=== PATIENT | female | born 1985 | race Caucasian/White ===

== ENCOUNTER 2016-09-17 19:06 | Emergency (ER) | payer BC, OTHER ==
[~2016-09-17] VITALS: Ht 162.6 cm; Wt 86.2 kg
[~2016-09-17 19:06] MED LIST: ETONMIS VAGRING; NXM/40 PO; ONDA4TAB10 SL
[2016-09-17 19:09] VITALS: TEMP 36.7; Ht 162.6 cm; Wt 86.2 kg
[2016-09-17] MEDS ORDERED: SODIUM CHLORIDE 0.9% 1000ML 1,000 ML IV STA (19:42)
[2016-09-17 20:14] LABS: BASO % 0.4 %; BASO ABS # 0.04 K/uL (0-0.2); COMPLETE YES; EOS % 2.3 %; HEMATOCRIT 38.1 % (37-47); IG% 0.2 %; LYMPH ABS # 4.12 K/uL (1.2-3.4); MEAN CELL VOLUME 91.4 fL (80-100); MEAN CORPUSCULAR HEMOGLOBIN 30.5 pg (25-34); MEAN CORPUSCULAR HGB CONC 33.3 g/dl (32-36); MEAN PLATELET VOLUME 8.2 fL (7.4-10.4); MONO % 4.9 %; NEUT % 53.2 %; PLATELET COUNT 347 K/uL (130-400); RED BLOOD COUNT 4.17 M/uL (4.2-5.4); WHITE BLOOD COUNT 10.57 K/uL (4.8-10.8)
[2016-09-17 20:21] LABS: INR 0.9 (0.9-1.1); PARTIAL THROMBOPLASTIN RATIO 1.1; PROTHROMBIN TIME (PATIENT) 9.5 SECONDS (9.0-12.0)
[2016-09-17 20:38] LABS: BUN/CREATININE RATIO 13.9 (10-20); CALCIUM 8.9 mg/dl (8.5-10.1); CREATININE 0.92 mg/dl (0.60-1.20); POTASSIUM 3.4 mmol/L (3.5-5.1)
[2016-09-17 20:40] LABS: ALB/GLOB RATIO 0.9 (0.9-2)
[2016-09-17 21:50] LABS: URINE APPEARANCE CLEAR (CLEAR); URINE BILIRUBIN NEG (NEG); URINE COLOR ORANGE; URINE NITRITE NEG (NEG); URINE SPECIFIC GRAVITY 1.017 (1.000-1.030); UROBILINOGEN NEG (NEG); ZZUR CULT IF INDIC CLEAN CATCH NO
[2016-09-17 21:51] LABS: MANUAL MICROSCOPIC REQUIRED? NO; REVIEW REQ? NO
--- NOTE | 2016-09-17 21:58 | DIAGNOSTIC IMAGING REPORT ---
EXAMINATION: PELVIC ULTRASOUND CLINICAL HISTORY: heavy vaginal bleeding COMPARISON STUDY: May 2011 FINDINGS: The uterus measured 8.3 x 4.3 x 5.2 cm. Clot within the endometrial cavity was visualized measuring 13 mm. The right ovary measured 16 x 26 x 14 mm. The left ovary measured 24 x 22 x 18 mm.. There is no ultrasonographic evidence of ovarian torsion. It should be noted that ovarian torsion can be present with normal Doppler ultrasonographic findings. There was no evidence of pathologic free pelvic fluid. IMPRESSION: 1. Hemorrhage visualized within the endometrial cavity which measured 13 mm in thickness 2. Ultrasonographically normal ovaries Electronically signed by: Ez Bush M.D. 09/17/2016 9:56 PM Dictated Date/Time: 09/17/2016 9:53 PM
[2016-09-17] MEDS ORDERED: NORETHINDRONE ACETATE 5 MG TAB PO STA (22:56)
[2016-09-17] MEDS ORDERED: AYG/5 PO (23:07)
--- NOTE | 2016-09-17 23:07 | EMERGENCY ROOM VISIT NOTE ---
History First contact with patient: 19:27 Chief Complaint: ED VAG BLEEDING Stated Complaint: EXCESSIVE BLEEDING/CLOTING FROM PD, 8 DAYS History of Present Illness The patient is a 31 year old female who presents to the Emergency Room with complaints of heavy vaginal bleeding for the past 8 days. The patient states that she has had excessive vaginal bleeding over the past 8 days. She reports she is passing several blood clots daily and when she stands up, she has increased bleeding. She has been changing her pad twice per hour. The patient uses a NuvaRing and states that she inserted a new NuvaRing 4 days ago but this did not relieve the bleeding. She states that she has had a mild headache for the past few days as well. She has a history of cervical cancer and states that she had a LEEP procedure and cryotherapy 10 years ago. She called her OB/ [facility] and was able to make an appointment for this coming Wednesday. She reports some mild soreness across the lower abdomen which is relieved with ibuprofen. She rates her overall discomfort a 3/10. She states she had one previous episode of heavy bleeding several months ago, but this went away without treatment. She denies any history of bleeding or clotting disorders. She denies any urinary symptoms or fevers/chills. Review of Systems A complete 10 point review of systems was reviewed with the patient with pertinent positives and negatives as per history of present illness. All else were negative. Social History Smoking Status: Never Smoker Housing Status: lives with family Current/Historical Medications Scheduled Esomeprazole Magnesium (Nexium), 40 MG PO DAILY Etonogestrel/Ethinyl Estradiol (Nuvaring), 1 EA VAGRING MONTHLY Norethindrone Acetate (Aygestin), 1 TAB PO UD Allergies Coded Allergies: Egg White (Verified Allergy, Unknown, SHORTNESS OF BREATH, 09/17/16) Sulfamethoxazole w/Trimethoprim (Verified Allergy, Unknown, CHILDHOOD ALLERGY, 09/17/16) Physical Exam Vital Signs Date Time Temp Pulse Resp B/P Pulse Ox O2 Delivery O2 Flow Rate FiO2 09/17/16 23:50 77 18 120/84 100 Room Air 09/17/16 22:02 86 16 130/80 Room Air 09/17/16 21:55 82 16 154/105 97 Room Air 09/17/16 20:10 82 16 143/89 82 Room Air 09/17/16 19:09 36.7 92 18 167/93 100 Room Air Physical Exam VITALS: Vitals are noted on the nurse's note and reviewed by myself. Vital signs stable. GENERAL: This is a 31-year-old female, in no acute distress, nondiaphoretic, well-developed well-nourished. SKIN: Capillary reflex less than 2 seconds. HEART: Regular rate and rhythm without murmurs gallops or rubs. LUNGS: Clear to auscultation bilaterally without wheezes, rales or rhonchi. ABDOMEN: Positive bowel sounds x 4. Soft, nontender to palpation. PELVIC: External genitalia unremarkable. Moderate amount of blood from the cervical os. There is scarring of the cervix around the os. Otherwise unremarkable. NEURO: Patient was alert and oriented to person place and time. Medical Decision & Procedures ER Provider Diagnostic Interpretation: EXAMINATION: PELVIC ULTRASOUND CLINICAL HISTORY: heavy vaginal bleeding COMPARISON STUDY: May 2011 FINDINGS: The uterus measured 8.3 x 4.3 x 5.2 cm. Clot within the endometrial cavity was visualized measuring 13 mm. The right ovary measured 16 x 26 x 14 mm. The left ovary measured 24 x 22 x 18 mm.. There is no ultrasonographic evidence of ovarian torsion. It should be noted that ovarian torsion can be present with normal Doppler ultrasonographic findings. There was no evidence of pathologic free pelvic fluid. IMPRESSION: 1. Hemorrhage visualized within the endometrial cavity which measured 13 mm in thickness 2. Ultrasonographically normal ovaries Laboratory Results 09/17/16 19:53 Red Blood Count 4.17, Mean Corpuscular Volume 91.4, Mean Corpuscular Hemoglobin 30.5, Mean Corpuscular Hemoglobin Concent 33.3, Mean Platelet Volume 8.2, Neutrophils (%) (Auto) 53.2, Lymphocytes (%) (Auto) 39.0, Monocytes (%) (Auto) 4.9, Eosinophils (%) (Auto) 2.3, Basophils (%) (Auto) 0.4, Neutrophils # (Auto) 5.63, Lymphocytes # (Auto) 4.12, Monocytes # (Auto) 0.52, Eosinophils # (Auto) 0.24, Basophils # (Auto) 0.04 09/17/16 19:53 Test 09/17/16 19:53 09/17/16 21:15 White Blood Count 10.57 K/uL (4.8-10.8) Red Blood Count 4.17 M/uL (4.2-5.4) Hemoglobin 12.7 g/dL (12.0-16.0) Hematocrit 38.1 % (37-47) Mean Corpuscular Volume 91.4 fL (80-100) Mean Corpuscular Hemoglobin 30.5 pg (25-34) Mean Corpuscular Hemoglobin Concent 33.3 g/dl (32-36) Platelet Count 347 K/uL (130-400) Mean Platelet Volume 8.2 fL (7.4-10.4) Neutrophils (%) (Auto) 53.2 % Lymphocytes (%) (Auto) 39.0 % Monocytes (%) (Auto) 4.9 % Eosinophils (%) (Auto) 2.3 % Basophils (%) (Auto) 0.4 % Neutrophils # (Auto) 5.63 K/uL (1.4-6.5) Lymphocytes # (Auto) 4.12 K/uL (1.2-3.4) Monocytes # (Auto) 0.52 K/uL (0.11-0.59) Eosinophils # (Auto) 0.24 K/uL (0-0.5) Basophils # (Auto) 0.04 K/uL (0-0.2) RDW Standard Deviation 45.3 fL (36.4-46.3) RDW Coefficient of Variation 13.6 % (11.5-14.5) Immature Granulocyte % (Auto) 0.2 % Immature Granulocyte # (Auto) 0.02 K/uL (0.00-0.02) Prothrombin Time 9.5 SECONDS (9.0-12.0) Prothromb Time International Ratio 0.9 (0.9-1.1) Activated Partial Thromboplast Time 27.3 SECONDS (21.0-31.0) Partial Thromboplastin Ratio 1.1 Anion Gap 5.0 mmol/L (3-11) Est Creatinine Clear Calc Drug Dose 93.3 ml/min Estimated GFR () 95.5 Estimated GFR (Non- 82.4 BUN/Creatinine Ratio 13.9 (10-20) Calcium Level 8.9 mg/dl (8.5-10.1) Total Bilirubin 0.3 mg/dl (0.2-1) Aspartate Amino Transf (AST/SGOT) 11 U/L (15-37) Alanine Aminotransferase (ALT/SGPT) 22 U/L (12-78) Alkaline Phosphatase 65 U/L (45-117) Total Protein 7.9 gm/dl (6.4-8.2) Albumin 3.8 gm/dl (3.4-5.0) Globulin 4.1 gm/dl (2.5-4.0) Albumin/Globulin Ratio 0.9 (0.9-2) Urine Color ORANGE Urine Appearance CLEAR (CLEAR) Urine pH 6.0 (4.5-7.5) Urine Specific Tell 1.017 (1.000-1.030) Urine Protein NEG (NEG) Urine Glucose (UA) NEG (NEG) Urine Ketones 1+ (NEG) Urine Occult Blood 3+ (NEG) Urine Nitrite NEG (NEG) Urine Bilirubin NEG (NEG) Urine Urobilinogen NEG (NEG) Urine Leukocyte Esterase NEG (NEG) Urine WBC (Auto) 1-5 /hpf (0-5) Urine RBC (Auto) >30 /hpf (0-4) Urine Hyaline Casts (Auto) 0 /lpf (0-5) Urine Epithelial Cells (Auto) 5-10 /lpf (0-5) Urine Bacteria (Auto) NEG (NEG) Urine Test NEG (NEG) Medications Administered Medications (Trade) Dose Ordered Sig/Daly Route Start Time Stop Time Status Last Admin Dose Admin Sodium Chloride (Nss 1000ml) 1,000 ml @ 999 mls/hr Q1H1M STAT IV 09/17/16 19:42 09/17/16 20:42 DC 09/17/16 20:15 999 MLS/HR Norethindrone Acetate (Aygestin Tab) 5 mg NOW STAT PO 09/17/16 22:56 09/17/16 22:57 DC 09/17/16 23:51 5 MG ED Course The patient was evaluated as above. Labs were drawn and IV access was obtained. Patient was medicated with 1 L normal saline solution. Pelvic ultrasound was performed and read by radiology as above. Case was discussed with Dr. Cadena, [place] [employer]. She recommended Aygestin. The patient was given her first dose of Aygestin in the emergency department. Discharge instructions were reviewed with the patient. The patient verbalized understanding of my assessment and treatment plan and was discharged home in good condition. Medical Decision Differential diagnosis includes abnormal uterine bleeding, cervical lesion, bleeding disorder, ectopic , among others. The patient is a 31-year-old female who presents today complaining of excessive vaginal bleeding. Labs revealed no anemia, hemoglobin is within normal limits at 12.7. PT and PTT were normal. Urinalysis was not suggestive of infection. Urine was negative. Ultrasound was unremarkable except for a clot within the uterine cavity pelvic ultrasound showed a moderate amount of blood. There was some cervical spine which I feel is likely due to the patient's prior LEEP and cryotherapy. The case was discussed with the on-call [employer], Dr. Cadena. She recommended and Aygestin taper and to keep the follow-up appointment next week. The patient was informed of these findings and agreeable with the treatment plan. Based on the patient's presentation and work up, I feel the patient is stable for outpatient treatment. The patient was educated to return to the emergency department for any worsening of their current condition or new/concerning symptoms. She will follow up with [employer] next week. Impression Primary Impression: Excessive vaginal bleeding Departure Information Dispostion Home / Self-Care Condition GOOD Prescriptions Norethindrone Acetate (AYGESTIN) 5 Mg Tab 1 TAB PO UD, #40 TAB qid x 4 days, tid x 3 days, bid x 5 days, qd until done Prov: Ivy Carbajal .ROMAINE 09/17/16 Referrals Makeda Longo (PCP) Patient Instructions My [facility] Additional Instructions Take the Aygestin as prescribed. Follow-up with [employer] Wednesday as scheduled.
[2016-09-17 23:50] VITALS: BP 120/84; PULSE 77; O2SAT 100
[2016-10-14] MEDS ORDERED: VNTHFA/IN INH (14:53)
[2016-10-14] MEDS ORDERED: FLVHFA110 INH (14:53)
== END 2016-09-17 23:57 | disposition home or self-care (01) ==
LOC: C.EDB 19:07
DX: N93.9 Abnormal uterine and vaginal bleeding, unspecified (principal); R51 Headache; Z85.41 Personal history of malignant neoplasm of cervix uteri

== ENCOUNTER → 2016-09-22 | Outpatient (CLI) | payer BC ==
[~2016-09-22] MED LIST changes: +AYG/5 PO; +FLVHFA110 INH; -ONDA4TAB10 SL; +VNTHFA/IN INH
[2016-09-22 13:28] LABS: BASO % 0.5 %; BASO ABS # 0.04 K/uL (0-0.2); COMPLETE YES; EOS % 1.9 %; HEMATOCRIT 35.1 % (37-47); IG% 0.1 %; LYMPH % 39.4 %; LYMPH ABS # 3.17 K/uL (1.2-3.4); MEAN CELL VOLUME 91.6 fL (80-100); MEAN CORPUSCULAR HEMOGLOBIN 29.5 pg (25-34); MEAN CORPUSCULAR HGB CONC 32.2 g/dl (32-36); MEAN PLATELET VOLUME 7.9 fL (7.4-10.4); NEUT % 53.1 %; PLATELET COUNT 376 K/uL (130-400); RED BLOOD COUNT 3.83 M/uL (4.2-5.4); WHITE BLOOD COUNT 8.05 K/uL (4.8-10.8)
== END | disposition home or self-care (01) ==
LOC: C.LAB1850 12:34
PROVIDERS: ATTEND Obstetrics & Gynecology
DX: N92.0 Excessive and frequent menstruation with regular cycle (principal)

== ENCOUNTER → 2016-11-04 | Day surgery (SDC) | payer BC ==
[2016-10-14 14:54] VITALS: Ht 165.1 cm; Wt 85.9 kg
[~2016-11-04] VITALS: Ht 165.1 cm; Wt 85.9 kg
[~2016-11-04] MED LIST changes: -AYG/5 PO; +DEXAMETHASONE SOD INJ 4 MG/ML VIAL ONE; -ETONMIS VAGRING; +FENTANYL CITRATE INJ 50 MCG/1 ML 2 ML VIAL ONE; +KETOROLAC TROMETHAMINE 30 MG/ML VIAL ONE; +LACTATED RINGER'S 1000ML 1,000 ML IV SCH; +LIDOCAINE HCL 2% 2 ML VIAL (20MG/ML) ONE; +MIDAZOLAM HCL 1 MG/ML 2ML VIAL ONE; +ONDANSETRON INJ 2 MG/ML 2 ML VIAL IV PRN; +ONDANSETRON INJ 2 MG/ML 2 ML VIAL ONE; +OXYCODONE/ACETAMINOPHEN 5-325 TAB PO PRN; +PROMETHAZINE HCL INJ 25 MG in SODIUM CHLORIDE 0.9% 50ML 50 ML IV PRN; +PROPOFOL IV EMULSION 10 MG/ML 20 ML VIAL IV ONE; +SODIUM CHLORIDE 0.9% 1000ML 1,000 ML IV SCH
--- NOTE | 2016-11-04 15:31 | History & Physical Bridge - SC ---
H&P Re-Evaluation Bridge Note: I have examined the patient, reviewed the History & Physical and in the interval since the performance of the History & Physical I have noted the following changes of clinical significance: Patient's insurance will not cover IUD placed in the OR - she would need to pick it up from a pharmacy, and did not realize this until today, and no local pharmacies have Mirenas readily available. She has decided to forego the IUD insertion, and proceed with h- scope/D&C. Will plan to continue to use Nuvaring - she has these at home.
--- NOTE | 2016-11-04 16:10 | [facility] Post Operative Brief Note ---
Immediate Operative Summary Operative Date Nov 04, 2016. Pre-Operative Diagnosis Menorrhagia, Uterine Polyp Post-Operative Diagnosis same Procedure(s) Performed Dilatation And Curettage, Hysteroscopy Surgeon Dr. Anton Park Radiographer Surgeon(s) 0 Estimated Blood Loss 5cc Findings Normal-appearing uterine lining, bilateral ostia visualized. Uterus sounded to 8 cm. Specimens A. Endometrial Curettings Drains Bladder emptied prior to procedure Anesthesia General Complication(s) None Disposition Recovery Room / PACU
--- NOTE | 2016-11-04 16:15 | Discharge Instructions-SurgCtr ---
Discharge Instructions Date of Service Nov 04, 2016. Visit Reason for Visit: Menorrhagia Discharge Discharge Diagnosis / Problem: Same Discharge Goals Goal(s): Diagnostic testing Activity Recommendations Activity Limitations: per Instructions/Follow-up section Anesthesia . Post Anesthesia Instructions: If you have had General Anesthesia or IV Sedation: * Do not drive today. * Resume driving when surgeon permits. * Do not make important decisions or sign legal documents today. * Call surgeon for: 1. Temperature elevations greater than 101 degrees F. 2. Uncontrollable pain. 3. Excessive bleeding. 4. Persistent nausea and vomiting. 5. Medication intolerance (nausea, vomiting or rash). * For nausea and vomiting use only clear liquids such as: tea, soda, bouillon until nausea subsides, then gradually increase diet as tolerated. * If you have any concerns or questions, call your surgeon's office. If physician is unavailable and it is an emergency, call 911 or go to the nearest emergency room. . Instructions / Follow-Up Instructions / Follow-Up ACTIVITY RECOMMENDATIONS: * Avoid tampons, douching, hot tubs, pools, and intercourse until bleeding has stopped. * May shower as usual. * No strenuous activity for 24-48 hours. After 24-48 hours, you may do anything you feel like doing (driving and sports are okay). SPECIAL CARE INSTRUCTIONS: Special Diet: * Mild nausea may occur in the immediate post-operative period. * Take clear liquids such as tea, cola or bouillon until all nausea has subsided; you may then resume your normal diet. Special Care: * Light bleeding and vaginal spotting can last from a few days to 3-4 weeks. Call your doctor if bleeding becomes heavier than the heaviest part of your period. * Check your temperature twice a day for one week. If it goes above 100.4 degrees Fahrenheit (38.0 Celsius), notify your doctor. * Call your doctor's office for an appointment for 6 weeks after your surgery. FOLLOW-UP VISIT: Call your doctor's office for an appointment for 6 weeks after your surgery. Diet Recommendations Home Diet: resume previous diet Procedures Procedures Performed: Dilatation And Curettage, Hysteroscopy Pending Studies Studies pending at discharge: yes List of pending studies: pathology Medical Emergencies . Who to Call and When: Medical Emergencies: If at any time you feel your situation is an emergency, please call 911 immediately. . Non-Emergent Contact Non-Emergency issues call your: Primary Care Provider, Culinary Chef . . "Provider Documentation" section prepared by Debi Park. .
--- NOTE | 2016-11-04 16:45 | OPERATIVE REPORT ---
DATE OF OPERATION: 11/04/2016 PREOPERATIVE DIAGNOSES: Menorrhagia and uterine polyp. POSTOPERATIVE DIAGNOSES: Same. PROCEDURES PERFORMED: Dilation and curettage and hysteroscopy. SURGEON: Debi Park DO CANDY CATCHER: None. ESTIMATED BLOOD LOSS: 5 mL. FINDINGS: Normal appearing uterine lining, bilateral ostia visualized. Uterus sounded to 8 cm. SPECIMENS: Endometrial curettings. DRAINS: Bladder emptied prior to procedure. ANESTHESIA: General. COMPLICATIONS: None. DISPOSITION: Stable and good to recovery room and PACU. INDICATIONS FOR PROCEDURE: The patient is a 31-year-old G2, P2 with heavy menses and endometrial polyps seen on ultrasound. She had previously requested insertion of Mirena at the time of surgery; however, due to insurance issues, this was not possible today. She will reconsider this and possibly get this done in the office if desired. DESCRIPTION OF PROCEDURE: The patient was seen in the preoperative holding area where risks, benefits, alternatives to surgery were reviewed. She elected to proceed with surgery. She was taken to the operating room where general anesthesia was introduced. She was placed in the dorsal lithotomy position with feet in candy cane stirrups, and prepared and draped in the usual sterile fashion. Bladder was drained. The cervix was visualized after a weighted speculum was placed and the anterior lip was grasped with a single tooth tenaculum. The cervix was gently dilated to admit the MyoSure hysteroscope. The scope was inserted and the endometrial cavity was visualized. Due to no visualization of any polyps to remove with the MyoSure device, the hysteroscope was then withdrawn and a gentle curettage was performed with a sharp curette. These curettings were then sent to pathology to be further evaluated. All instruments were removed from the vagina. The patient exhibited excellent hemostasis. She was awoken from anesthesia and taken to the postop recovery area in stable and good condition. I attest to the content of the Intraoperative Record and any orders documented therein. Any exception s are noted below.
[2016-11-04 17:01] VITALS: TEMP 36.6
--- NOTE | 2016-11-04 17:19 | Anesthesia Progress Nt - [facility] ---
Anesthesia Post Op Note Date & Time Nov 04, 2016 at 17:19 Vital Signs Pain Intensity: 0 Vital Signs Past 12 Hours Date Time Temp Pulse Resp B/P (MAP) Pulse Ox O2 Delivery O2 Flow Rate FiO2 11/04/16 17:01 36.6 60 20 117/77 (90) 100 Room Air 11/04/16 16:53 52 16 96 11/04/16 16:53 51 16 11/04/16 16:51 104/61 11/04/16 16:48 52 14 97 11/04/16 16:48 52 14 11/04/16 16:46 108/58 11/04/16 16:43 53 12 11/04/16 16:43 54 12 96 11/04/16 16:41 106/60 11/04/16 16:38 56 15 11/04/16 16:38 57 15 95 11/04/16 16:37 56 16 95 11/04/16 16:37 57 16 11/04/16 16:36 108/66 11/04/16 16:34 37.0 59 16 108/66 95 Room Air 11/04/16 16:32 65 16 11/04/16 16:32 66 16 97 11/04/16 16:31 110/70 11/04/16 16:27 56 13 97 11/04/16 16:27 56 13 11/04/16 16:26 111/63 11/04/16 16:22 59 17 11/04/16 16:22 58 17 100 11/04/16 16:21 112/62 11/04/16 16:17 57 15 11/04/16 16:17 57 15 100 11/04/16 16:16 108/64 11/04/16 16:12 56 14 100 11/04/16 16:12 58 14 11/04/16 16:11 110/64 11/04/16 16:08 104/69 11/04/16 16:07 36.3 56 16 104/69 100 Diffusion Mask 11/04/16 16:07 64 11/04/16 16:07 64 96 11/04/16 12:43 36.8 76 20 124/84 (97) 97 Room Air Notes Mental Status: alert / awake / arousable, participated in evaluation Pt Amnestic to Procedure: Yes Nausea / Vomiting: adequately controlled Pain: adequately controlled Airway Patency, RR, SpO2: stable & adequate BP & HR: stable & adequate Hydration State: stable & adequate Anesthetic Complications: no major complications apparent
[2016-11-04 17:20] VITALS: BP 118/78; PULSE 62; O2SAT 99
== END | disposition home or self-care (01) ==
LOC: X.SURG 12:21
PROVIDERS: ATTEND Obstetrics & Gynecology
DX: N92.0 Excessive and frequent menstruation with regular cycle (principal); N84.0 Polyp of corpus uteri; J45.909 Unspecified asthma, uncomplicated; Z90.49 Acquired absence of other specified parts of digestive tract; E66.9 Obesity, unspecified; Z68.31 Body mass index [BMI] 31.0-31.9, adult; Z88.1 Allergy status to other antibiotic agents; Z88.2 Allergy status to sulfonamides; Z83.3 Family history of diabetes mellitus; Z82.49 Family history of ischemic heart disease and other diseases of the circulatory system; Z84.89 Family history of other specified conditions; Z80.3 Family history of malignant neoplasm of breast